=== PATIENT | male | born 1970 | race Caucasian/White ===

== ENCOUNTER → 2016-11-15 | Outpatient (CLI) | payer OTHER | LOC: FIMAGING 14:10 | PROVIDERS: ATTEND Registered Nurse | DX: M50.31 Other cervical disc degeneration, high cervical region (principal); M50.322 Other cervical disc degeneration at C5-C6 level; M50.323 Other cervical disc degeneration at C6-C7 level; M12.88 Other specific arthropathies, not elsewhere classified, other specified site; M48.03 Spinal stenosis, cervicothoracic region; M99.71 Connective tissue and disc stenosis of intervertebral foramina of cervical region; Z98.1 Arthrodesis status ==

== ENCOUNTER 2016-12-02 15:50 | Emergency (ER) | payer OTHER ==
[2016-12-02 16:00] VITALS: BP 144/86; PULSE 89; RESP 18; TEMP 97.9; O2SAT 95
--- NOTE | 2016-12-02 18:49 | EDPHY ---
H & P Stated Complaint: Losing strength R arm x 5 days;hx chronic neck/back pain Time Seen by Provider: 12/02/16 17:24 HPI/ROS: Chief complaint: Right arm weakness, neck pain HPI: 46-year-old male with a history of chronic neck and back pain presenting complaining of weakness in his right arm for the last 5 days. Patient states that he had an MRI about a week or 2 ago of his cervical spine. He has a history of cervical fusion in the past. She is also he has also had operations on his thoracic and lumbar spine as well. Denies any numbness or tingling. Has noticed some increasing weakness in his hand and upper arm. He normally takes oxycodone and Opana for his pain. Was a patient of the [facility]. ROS: 10 point Review of Systems is negative except as noted in the HPI. Past medical history: Chronic neck and back pain. Medications: Oxycodone, Opana Physical exam: Gen: Awake, Alert, No Distress HEENT: Nose: no rhinorrhea Eyes: PERRLA, EOMI Mouth: Moist mucosa Neck: Supple, no JVD Chest: nontender, lungs clear to auscultation Heart: S1, S2 normal, no murmur Abd: Soft, non-tender, no guarding Back: no CVA tenderness, no midline tenderness Ext: no edema, non-tender Skin: no rash Neuro: CN II-XII intact, Sensation grossly intact, he has 4.5/5 strength in his suprascapular, biceps, brachioradialis on the right, 5 in 5 strength on the left. - Personal History Current Tetanus Diphtheria and Acellular Pertussis (TDAP): Yes - Medical/Surgical History Other PMH: chronic back problems/pain. fusion c4-c5 - Social History Smoking Status: Current every day smoker Constitutional: Initial Vital Signs Temperature (C) 36.6 C 12/02/16 15:55 Heart Rate 89 12/02/16 15:55 Respiratory Rate 18 12/02/16 15:55 Blood Pressure 144/86 H 12/02/16 15:55 O2 Sat (%) 95 12/02/16 15:55 O2 Delivery Mode Room Air Home Medications: Medication Instructions Recorded Oxymorphone HCl [Opana Er] 20 mg PO 12/02/16 oxyCODONE HCL [Oxycontin] 20 mg PO 12/02/16 Medical Decision Making ED Course/Re-evaluation: Patient having right-sided weakness for half on 5 and the C4-5 C5-6 distribution. MRI from 11/15 shows as follows: Impression: 1. C3-C4: Moderate central canal stenosis and moderate to severe bilateral neural foraminal stenosis secondary to moderate degenerative disk disease, with dorsal disk/ osteophyte complex and bilateral uncovertebral osteophytes, with facet arthropathy. 2. C4-C5: Previous anterior cervical diskectomy and fusion, without stenosis. 3. C5-C6: Mild to moderate central canal stenosis and moderate to severe bilateral neural foraminal stenosis secondary to moderate degenerative disk disease, with dorsal disk/osteophyte complex, bilateral uncovertebral osteophytes. 4. C6-C7: Mild central canal stenosis and moderate to severe bilateral neural foraminal stenosis secondary to moderate degenerative disk disease, with bilateral uncovertebral osteophytes and mild bilateral facet arthropathy. 5. No cord edema or myelomalacia. 6. Please see above findings at specific disk levels. Dictated By: Santiago Neal Case discussed with Dr. Huerta, neurosurgeon collections attorney for Dr. Garzon. I have referred reviewed the patient's neurologic symptoms any MRI findings. He does not want any further imaging or treatment at this time. Patient is to follow up in their clinic as an outpatient. He will contact Dr. huerta since team to arrange for the patient to be brought in for further evaluation. Departure - Departure Disposition: Home, Routine, Self-Care Clinical Impression: Neck pain, Cervical radiculopathy Condition: Good Instructions: Neck Pain (ED), Cervical Radiculopathy (ED) Additional Instructions: Follow up with Dr. Garzon for further evaluation. Call tomorrow for the 1st available appointment. Dr. Garzon will be awaiting your call. Referrals: Bharat Larsen MD [Primary Care Provider] - As per Instructions Lucas Garzon MD [Medical Doctor] - As per Instructions
== END 2016-12-02 19:09 | disposition home or self-care (01) ==
DX: M54.12 Radiculopathy, cervical region (principal); F17.200 Nicotine dependence, unspecified, uncomplicated

== ENCOUNTER 2016-12-22 15:48 | Inpatient (IN) | payer OTHER ==
[2016-12-22] MEDS ORDERED: LORazepam 2 MG/ML INJ IVP ONE ×2 (15:58→16:02)
[2016-12-22] MEDS ORDERED: HYDROmorphONE/DILAUDID 1 MG/ML SYR IVP ONE ×2 (16:02→16:50)
[2016-12-22] MEDS ORDERED: ONDANSETRON 4 MG/2 ML VIAL IVP ONE (16:02)
--- NOTE | 2016-12-22 16:04 | EDPHY ---
H & P Stated Complaint: R lower leg pain since yesterday; no known injury Time Seen by Provider: 12/22/16 15:52 HPI/ROS: CHIEF COMPLAINT: Right calf pain since this morning HISTORY OF PRESENT ILLNESS: 46-year-old male arrives via private vehicle complaining of acute right medial calf pain since this morning. Atraumatic. No discoloration. No prior history of similar. No thromboembolic disorder history. No paresthesia. No chest pain. No dyspnea. No back or flank pain. No abdominal pain. No nausea or vomiting. PRIMARY CARE PROVIDER: REVIEW OF SYSTEMS: A ten point review of systems was performed and is negative with the exception of the items mentioned in the HPI PAST MEDICAL & SURGICAL HISTORY: History of chronic back pain, opiate dependence. No history of vasculopathy SOCIAL HISTORY: PHYSICAL EXAM (Prior to examination, patient consented to physical exam, hands were washed and my usual and customary physical exam procedures followed) 1) GENERAL: Well-developed, well-nourished, alert and oriented. Appears uncomfortable, screaming 2) HEAD: Normocephalic, atraumatic 3) HEENT: Pupils equal, round, reactive to light bilaterally. 4) NECK: Full range of motion, no meningeal signs. 5) LUNGS: Clear auscultation bilaterally,. 6) HEART: Regular rate and rhythm, no murmur, no heave, no gallop. 7) ABDOMEN: No guarding, no rebound, no focal tenderness, 8) MUSCULOSKELETAL: right lower extremity: Distal DP, PT pulses present and brisk, brisk capillary refill, normal color, normal temperature. Compartments are soft. Tender to palpation medial pretibial region. No visible signs of trauma. No discoloration. No lesions. Proximally nontender . 9) BACK: No CVA tenderness. 10) SKIN: No rash, no petechiae. 11) Psychiatric: Patient is oriented X 3, there is no agitation. DIFFERENTIAL DIAGNOSIS: no particular include but limited to compartment syndrome, DVT, arterial occlusion, cellulitis, fracture - Medical/Surgical History Other PMH: chronic back problems/pain. fusion c4-c5 - Social History Smoking Status: Current every day smoker Constitutional: Initial Vital Signs Heart Rate 90 12/22/16 16:00 Respiratory Rate 22 H 12/22/16 16:00 Blood Pressure 136/84 H 12/22/16 16:00 O2 Sat (%) 95 12/22/16 16:00 O2 Delivery Mode Room Air Allergies/Adverse Reactions: No Known Allergies Allergy (Unverified 12/22/16 15:59) Home Medications: Medication Instructions Recorded Oxymorphone HCl [Opana Er] 20 mg PO BID 12/02/16 oxyCODONE IR [Oxycodone Ir (*)] 20 mg PO QID 12/22/16 Medical Decision Making - Diagnostics Imaging: Ultrasound Venous Duplex/Doppler Right Leg History: Pain and swelling. Findings: The common femoral vein and femoral vein are compressible and widely patent without evidence for deep venous thrombosis. There is acute thrombus with noncompressibility throughout the popliteal vein and in both peroneal veins and posterior tibial veins from the mid calf to the popliteal vein. Greater saphenous vein is patent. Impression: Evidence of deep venous thrombosis in the right popliteal vein and both posterior tibial and peroneal veins. Results called and discussed with Rogers Delacruz PA-C at 12/22/2016 16:44. Dictated By: Richie Jenkins MD Right tibia and fibula, 2 views. History: Pain. Findings: Normal mineralization and alignment. No evidence for acute fracture or dislocation. No significant joint narrowing, periarticular erosion, periarticular spurring. Impression: Normal radiograph right tibia and fibula. Dictated By: Richie Jenkins MD Images reviewed by myself ED Course/Re-evaluation: Re-evaluation with serial examinations. Compartments remain soft is neurovascularly intact with strong pulses brisk capillary refill normal color normal temperature distally. He is noted to have multiple DVTs, see ultrasound report. Given the continued degree of pain this patient I recommended admission which he is agreeable with. Phone consultation with hospitalist Dr. Ramon who will admit patient. - Data Points Laboratory Results: Laboratory Results 12/22/16 16:00 12/22/16 16:00 12/22/16 12/22/16 16:00 16:00 WBC 14.14 10^3/uL H 10^3/uL (3.80-9.50) RBC 5.28 10^6/uL 10^6/uL (4.40-6.38) Hgb 16.3 g/dL g/dL (13.7-17.5) Hct 47.7 % % (40.0-51.0) MCV 90.3 fL fL (81.5-99.8) MCH 30.9 pg pg (27.9-34.1) MCHC 34.2 g/dL g/dL (32.4-36.7) RDW 12.7 % % (11.5-15.2) Plt Count 189 10^3/uL 10^3/uL (150-400) MPV 10.7 fL fL (8.7-11.7) Neut % (Auto) 69.4 % % (39.3-74.2) Lymph % (Auto) 19.4 % % (15.0-45.0) [place] % (Auto) 7.6 % % (4.5-13.0) Eos % (Auto) 1.6 % % (0.6-7.6) Baso % (Auto) 0.8 % % (0.3-1.7) Nucleat RBC Rel Count 0.0 % % (0.0-0.2) Absolute Neuts (auto) 9.81 10^3/uL H 10^3/uL (1.70-6.50) Absolute Lymphs (auto) 2.75 10^3/uL 10^3/uL (1.00-3.00) Absolute Monos (auto) 1.07 10^3/uL H 10^3/uL (0.30-0.80) Absolute Eos (auto) 0.22 10^3/uL 10^3/uL (0.03-0.40) Absolute Basos (auto) 0.12 10^3/uL H 10^3/uL (0.02-0.10) Absolute Nucleated RBC 0.00 10^3/uL 10^3/uL (0-0.01) Immature Gran % 1.2 % H % (0.0-1.1) Immature Gran # 0.17 10^3/uL H 10^3/uL (0.00-0.10) Sodium 137 mEq/L mEq/L (134-144) Potassium 4.1 mEq/L mEq/L (3.5-5.2) Chloride 103 mEq/L mEq/L (97-110) Carbon Dioxide 19 mEq/l L mEq/l (22-31) Anion Gap 15 mEq/L mEq/L (8-16) BUN 13 mg/dL mg/dL (7-23) Creatinine 0.8 mg/dL mg/dL (0.7-1.3) Estimated GFR > 60 Glucose 84 mg/dL mg/dL (70-100) Calcium 9.6 mg/dL mg/dL (8.5-10.4) Creatine Kinase 144 IU/L IU/L (0-224) Medications Given: Discontinued Medications Hydromorphone HCl (Dilaudid) 1 mg IVP EDNOW ONE Stop: 12/22/16 16:03 Last Admin: 12/22/16 16:15 Dose: 1 mg Hydromorphone HCl (Dilaudid) 1 mg IVP EDNOW ONE Stop: 12/22/16 16:51 Last Admin: 12/22/16 17:15 Dose: 1 mg Ketorolac Tromethamine (Toradol) 30 mg IVP EDNOW ONE Stop: 12/22/16 16:51 Last Admin: 12/22/16 17:15 Dose: 30 mg Lorazepam (Ativan Injection) 1 mg IVP EDNOW ONE Stop: 12/22/16 15:59 Last Admin: 12/22/16 16:20 Dose: 1 mg Lorazepam (Ativan Injection) 1 mg IVP EDNOW ONE Stop: 12/22/16 16:03 Last Admin: 12/22/16 17:42 Dose: Not Given Ondansetron HCl (Zofran) 4 mg IVP EDNOW ONE Stop: 12/22/16 16:03 Last Admin: 12/22/16 16:15 Dose: 4 mg Departure - Departure Disposition: [facility] Clinical Impression: Right leg DVT Qualifiers: Affected thrombotic vein of extremity: popliteal Chronicity: acute Qualified Code(s): I82.431 - Acute embolism and thrombosis of right popliteal vein Condition: Good
[2016-12-22] MEDS ORDERED: KETOROLAC 30 MG/1 ML SDV IVP ONE (16:50)
[2016-12-22 16:58] LABS: ANION GAP 15 mEq/L (8-16); CALCIUM 9.6 mg/dL (8.5-10.4); CARBON DIOXIDE 19 mEq/l (22-31); CHLORIDE 103 mEq/L (97-110); CREATININE 0.8 mg/dL (0.7-1.3); GLOMERULAR FILTRATION RATE > 60; GLUCOSE 84 mg/dL (70-100); POTASSIUM 4.1 mEq/L (3.5-5.2); SODIUM 137 mEq/L (134-144)
[2016-12-22 17:04] LABS: % IMMATURE GRANULYOCYTES 1.2 % (0.0-1.1); ABSOLUTE IMMATURE GRANULOCYTES 0.17 10^3/uL (0.00-0.10); ADD DIFF? NO; ADD MORPH? NO; ADD SCAN? NO; ATYPICAL LYMPHOCYTE FLAG 0 (0-99); FRAGMENT RBC FLAG 0 (0-99); HEMATOCRIT 47.7 % (40.0-51.0); HEMOGLOBIN 16.3 g/dL (13.7-17.5); LEFT SHIFT FLG 0 (0-99); LIPEMIA HEMOLYSIS FLAG 90 (0-99); MEAN CELL HEMOGLOBIN 30.9 pg (27.9-34.1); MEAN CELL HEMOGLOBIN CONCENTR. 34.2 g/dL (32.4-36.7); MEAN CELL VOLUME 90.3 fL (81.5-99.8); MEAN PLATELET VOLUME 10.7 fL (8.7-11.7); PLATELET CLUMPS FLAG 0 (0-99); PLATELET COUNT 189 10^3/uL (150-400); RED BLOOD CELL COUNT 5.28 10^6/uL (4.40-6.38); RED CELL DISTRIBUTION WIDTH 12.7 % (11.5-15.2)
[2016-12-22 17:06] LABS: INR 1.06 (0.83-1.16); PROTIME(PATIENT) 13.7 SEC (12.0-15.0)
[2016-12-22] MEDS ORDERED: ONDANSETRON DISINTEGRATING 4 MG TAB PO PRN (18:56)
[2016-12-22] MEDS ORDERED: ACETAMINOPHEN 325 MG TAB PO PRN (18:56)
[2016-12-22] MEDS ORDERED: ONDANSETRON 4 MG/2 ML VIAL IVP PRN (18:56)
--- NOTE | 2016-12-22 19:46 | GHP ---
[f rep st] HISTORY AND PHYSICAL DATE OF ADMISSION: 12/22/2016 CHIEF COMPLAINT: Right calf pain. HISTORY OF PRESENT ILLNESS: This is a 46-year-old male with a history of chronic back and neck pain on chronic opioid therapy. He has had 1-day history of severe right calf pain. No chest pain or s hortness of breath. He has never had blood clots before. He is not that active due to his chronic pain but nothing really has changed in the last several weeks to months. Both parents do have a his tory of blood clots though. He is a smoker. REVIEW OF SYSTEMS: A 10-point review of systems was obtained and negative. PAST MEDICAL HISTORY: Chronic back and neck pain status post multiple surgeries. MEDICATIONS: Opana and oxycodone. SOCIAL HISTORY: He smokes cigarettes. No alcohol. FAMILY HISTORY: Both parents have histories of DVT. PHYSICAL EXAMINATION: VITAL SIGNS: Afebrile. Blood pressure is 129/79, heart rate 89, oxygen satu ration 96% on room air. GENERAL: The patient is well developed in no apparent distress. HEENT: N onicteric sclerae. Extraocular movements intact. Moist mucous membranes. NECK: Supple. No thyro megaly. LUNGS: Good effort. Clear to auscultation bilaterally. CARDIOVASCULAR: Regular rate and rhythm. No murmurs or gallops. ABDOMEN: Positive bowel sounds. Soft, nontender, nondistended. No hepatosplenomegaly. EXTREMITIES: No clubbing, cyanosis, or edema. SKIN: Without rash, intact. EXTREMITIES: No clubbing, cyanosis. A slight amount of edema and some tenderness in the calf are a. NEUROLOGIC: Alert and oriented x3. Moving all 4 extremities equally. PSYCH: Normal affect. LABS: White blood cell count is elevated at 14. Chemistries normal. Tib-fib x-ray is negative whi ch is personally reviewed and interpreted. Lower extremity Doppler shows DVT in the right popliteal vein. ASSESSMENT: A 46-year-old male presenting with right-sided DVT. PLAN: Right lower extremity DVT. The patient is being admitted for pain control as he has received multiple doses of Dilaudid and still having significant pain. The patient would want to be on some thing like Xarelto which we will start here in the emergency department. Will continue with pain co ntrol using his chronic pain medications and adding some oral Dilaudid as well as some IV Dilaudid a s well. Hopefully by tomorrow, we can get him on a regimen for him to go home. /[id number]/MODL
[2016-12-22] MEDS: oxyCODONE IR 5 MG TAB PO SCH (19:56)
[2016-12-22] MEDS: OXYMORPHONE HCL 20 MG PO SCH (19:57)
[2016-12-22] MEDS: HYDROmorphONE/DILAUDID 2 MG TAB PO PRN (20:59)
[2016-12-22] MEDS: NICOTINE 14 MG/24 HR PATCH TD SCH (21:00)
[2016-12-22] MEDS: RIVAROXABAN 15 MG TAB PO SCH (21:01)
[2016-12-22] MEDS: HYDROmorphONE/DILAUDID 1 MG/ML SYR IVP PRN (22:12)
[2016-12-22] MEDS: ZOLPIDEM TARTRATE 5 MG TAB PO PRN (22:52)
[2016-12-23] MEDS: HYDROmorphONE/DILAUDID 2 MG TAB PO PRN ×4 (04:11→22:57)
[2016-12-23] MEDS: HYDROmorphONE/DILAUDID 1 MG/ML SYR IVP PRN ×2 (04:15→22:59)
[2016-12-23] MEDS: oxyCODONE IR 5 MG TAB PO SCH ×4 (05:59→20:23)
[2016-12-23] MEDS: RIVAROXABAN 15 MG TAB PO SCH ×2 (09:32→17:06)
[2016-12-23] MEDS: NICOTINE 14 MG/24 HR PATCH TD SCH (09:32)
[2016-12-23] MEDS: OXYMORPHONE HCL 20 MG PO SCH ×2 (09:42→20:25)
[2016-12-23] MEDS ORDERED: RIVAROXABAN 15 MG TAB PO SCH (18:58)
--- NOTE | 2016-12-23 20:20 | HOSPPROG ---
Hospitalist Progress Note Assessment/Plan: The patient is a 46-year-old male with PMH chronic back pain and opioid dependence who was admitted for DVT of right lower extremity. ASSESSMENT/PLAN: Acute right lower extremity DVT Severe right lower extremity pain, secondary to above Acute debility/gait instability/fall risk, secondary to above Chronic low back pain, status post multiple surgeries Opioid dependence -PT consult - may need acute rehab vs home healthcare PT. Will likely need assistive device. -I was unable to ambulate him (neither could the RN) bc he has so much pain when he steps w/ RLE. Appears to be a fall risk, unsafe for DC to home at this time. -Increase pain medications for his opioid tolerance - is still on home med oxycodone 20mg QID, but Opana not available here. Increasing IV Dilaudid from 1mg to 2mg to help w/ uncontrolled pain. -Continue Xarelto. VTE prophylaxis: Xarelto Code Status: Full Status: Change status from observation to inpatient for greater than 2 midnight stay. Disposition: [facility] with discharge anticipated in the next 1-2 days. ____ SUBJECTIVE: Today patient complains of severe pain in right lower extremity. The pain medicine in the hospital is not enough for him. He has been using a walker he found in his room to get to the bathroom on his own. Now he is complaining of right shoulder pain. He is not comfortable standing on his right leg. OBJECTIVE: Physical Exam: General: The patient is an obese, middle-aged male who is alert and in no acute distress at rest. HEENT: normocephalic, extraocular movements intact, conjunctivae clear. Mucous membranes moist. Neck: trachea midline, no visible masses. Abd: soft and nondistended. Bowel sounds present. Non tender. Musculoskeletal: Normal muscle tone/bulk. + tenderness of right leg, worse at lateral right calf. Unable to stand on RLE. Neuro: cranial nerves II XII grossly intact. Intact gross motor and sensory function. Psych: Appropriate mood and appropriate affect. Skin: No pallor. No petechiae. Heme/lymph: Nonpitting peripheral edema at right greater than left leg. Labs/Imaging/Other Tests: Personally reviewed/interpreted. Objective: Vital Signs Temp Pulse Resp BP Pulse Ox 37.0 C 85 20 119/82 H 94 12/23/16 19:23 12/23/16 19:23 12/23/16 19:23 12/23/16 19:23 12/23/16 19:23 12/22/16 12/23/16 12/24/16 05:59 05:59 05:59 Intake Total 2550 1500 Balance 2550 1500 PT 13.7 SEC (12.0-15.0) 12/22/16 Unknown INR 1.06 (0.83-1.16) 12/22/16 Unknown ICD10 Worksheet Patient Problems: Problems Problem Status Onset Right leg DVT Acute
[2016-12-23] MEDS: ZOLPIDEM TARTRATE 5 MG TAB PO PRN (22:23)
[2016-12-24] MEDS: oxyCODONE IR 5 MG TAB PO SCH ×2 (05:57→12:20)
[2016-12-24 07:46] VITALS: BP 111/82; PULSE 83; RESP 15; TEMP 97.5; O2SAT 90
[2016-12-24] MEDS: OXYMORPHONE HCL 20 MG PO SCH (09:25)
[2016-12-24] MEDS: HYDROmorphONE/DILAUDID 1 MG/ML SYR IVP PRN (09:30)
[2016-12-24] MEDS: NICOTINE 14 MG/24 HR PATCH TD SCH (09:34)
[2016-12-24] MEDS: RIVAROXABAN 15 MG TAB PO SCH (09:34)
[2016-12-24] MEDS: HYDROmorphONE/DILAUDID 2 MG TAB PO PRN (10:43)
--- NOTE | 2016-12-24 13:41 | GDS ---
[f rep st] DISCHARGE SUMMARY DISCHARGE DIAGNOSES: 1. Right calf deep venous thrombosis. 2. Chronic back and neck pain. HISTORY OF PRESENT ILLNESS: This is a 46-year-old male presenting with sudden onset of right calf p ain. HOSPITAL COURSE: Patient was diagnosed with DVT in the right calf. He was started on Xarelto. He did have significant pain control issues, but with some extra Dilaudid it seems to be improving. He will be discharged home with close followup with his primary care doctor. DISPOSITION: Home. DISCHARGE MEDICATIONS: He is to resume his medicines. In addition, he will be given a little bit o f oral Dilaudid, as well as Xarelto 15 mg twice daily for a total of 3 weeks, and then going down to the lower dose. FOLLOWUP INSTRUCTIONS: He is to follow up with his primary care doctor within the next 2 weeks. Greater than 30 minutes were spent on discharge. /[id number]/MODL
== END 2016-12-24 12:56 | disposition home or self-care (01) | DRG 300 ==
LOC: INTOOBSV 17:10 → F3N 18:25 → OBSVTOIN 12-23 20:18
PROVIDERS: ADMIT Internal Medicine; ATTEND Internal Medicine
DX: I82.431 Acute embolism and thrombosis of right popliteal vein (principal); I82.441 Acute embolism and thrombosis of right tibial vein; I82.890 Acute embolism and thrombosis of other specified veins; F11.20 Opioid dependence, uncomplicated; M54.2 Cervicalgia; Z98.1 Arthrodesis status; F17.210 Nicotine dependence, cigarettes, uncomplicated
CPT/HCPCS: 96374; 97161-GP; G0378; J1170; J1885; J2060; J2405